=== PATIENT | female | born 1965 | race Caucasian/White ===

== ENCOUNTER → 2016-07-07 | Outpatient (CLI) | payer BC ==
--- NOTE | 2016-07-09 13:57 | Diagnostic Imaging Report ---
Bilateral screening mammogram. The current study was also evaluated with a Computer Aided Detection (CAD) system. INDICATION: Screening. No current complaints stated on the questionnaire. COMPARISON: 06/02/2015. FINDINGS: The breasts are composed of heterogeneously dense parenchyma which may decrease mammographic sensitivity. There is no mass, architectural distortion, or suspicious microcalcification. Allowing for technique and positional differences, no suspicious change is seen. IMPRESSION: Dense breasts with no definite change. ACR BI-RADS Category 2: Benign findings. Result letter will be mailed to the patient. Note: At least 10% of breast cancer is not imaged by mammography. Dictated by: Dictated on workstation # [id number]
== END ==
LOC: RAD 07:26
PROVIDERS: ATTEND Obstetrics & Gynecology
DX: Z12.31 Encounter for screening mammogram for malignant neoplasm of breast (principal)

== ENCOUNTER → 2017-07-11 | Outpatient (CLI) | payer BC ==
--- NOTE | 2017-07-11 09:33 | Diagnostic Imaging Report ---
INDICATION: Routine screening. Comparison is made with prior mammogram from 07/07/2016 and 06/02/2015. The current study was also evaluated with a Computer Aided Detection (CAD) system. Bilateral CC and MLO 3D mammography was performed. Both breasts are heterogeneously dense, limiting the sensitivity of mammography. No dominant mass or malignant appearing microcalcifications are seen. The axillae are unremarkable. IMPRESSION: BI-RADS category 1. No mammographic features suspicious for malignancy are identified. ACR BI-RADS Category 1: Negative. Result letter will be mailed to the patient. Note: At least 10% of breast cancer is not imaged by mammography. Dictated by: Dictated on workstation # [id number]
== END ==
LOC: RAD 07:37
PROVIDERS: ATTEND Obstetrics & Gynecology
DX: Z12.31 Encounter for screening mammogram for malignant neoplasm of breast (principal)
CPT/HCPCS: 77067

== ENCOUNTER → 2017-08-01 | Outpatient (CLI) | payer BC ==
--- NOTE | 2017-08-01 14:20 | Diagnostic Imaging Report ---
CLINICAL INDICATION: Patient with cough, low-grade fever, and laryngitis for the past 3 weeks. EXAM: Chest x-ray, PA and lateral views. COMPARISON: None. FINDINGS: LUNGS/PLEURA: There is interval development of a mild right lung base infiltrate. The remaining lungs are clear. There is no pneumothorax. There is no pleural effusion. MEDIASTINUM: Unremarkable. PULMONARY VASCULATURE: Unremarkable. HEART: Unremarkable. BONES/EXTRATHORACIC SOFT TISSUE: There are small degenerative spurs involving the thoracic spine. IMPRESSION: Interval development of mild right lung base infiltrate/pneumonia. The results of this report were discussed with Michel, the nurse practitioner working with Dr. Baldwin, via the telephone on 08/01/2017 at 1400 hours. Dictated by: Dictated on workstation # [id number]
== END ==
LOC: RAD 13:44
PROVIDERS: ATTEND Internal Medicine
DX: R91.8 Other nonspecific abnormal finding of lung field (principal); R05 Cough; R50.9 Fever, unspecified
CPT/HCPCS: 71046

== ENCOUNTER 2017-12-26 12:00 | Outpatient (CLI) | payer BC ==
[~2017-12-26] VITALS: Ht 170.2 cm; Wt 63.5 kg
== END 2017-12-26 12:39 ==
LOC: PREOP 12:00
PROVIDERS: ATTEND Internal Medicine
DX: Z01.818 Encounter for other preprocedural examination (principal); Z12.11 Encounter for screening for malignant neoplasm of colon

== ENCOUNTER 2017-12-30 07:07 | Day surgery (SDC) | payer BC ==
--- NOTE | 2017-12-13 15:02 | HISTORY AND PHYSICAL ---
DATE OF SERVICE: COLONOSCOPY SUMMARY H AND P HISTORY OF PRESENT ILLNESS: The patient is a 52-year-old white female referred by Dr. Escamilla for her first screening colonoscopy. She is deemed to be of average risk as she is not aware of any family history for colon cancer. She reports no health problems. Denies bright red blood per rectum, melena, bowel habit change, constipation, diarrhea or abdominal pain. PAST MEDICAL HISTORY: She has had some issues with PVCs in the past, but no other significant ventricular or atrial arrhythmias. She states she takes an aspirin 81 mg per day for this reason. She has some occasional allergies. So, she takes Claritin for and takes melatonin at bedtime for insomnia. PAST SURGICAL HISTORY: Noncontributory. FAMILY HISTORY: Father has history of prostate cancer. Mother in her 60s secondary to complications from diabetes. She has had one paternal aunt with pancreatic cancer and another with thyroid cancer, but again no issues with colon cancer or inflammatory bowel disease reported. SOCIAL HISTORY: She is , employed with no past smoking history and occasional social alcohol intake. PHYSICAL EXAMINATION: GENERAL: Reveals normal weight. Well appearing white female in no acute distress. VITAL SIGNS: Blood pressure 94/64, heart rate 70 and regular. HEENT: Examination is unremarkable. She has a Mallampati class 1 oropharyngeal configuration. No pharyngeal erythema is noted. CHEST: Clear to auscultation. CARDIOVASCULAR: Reveals a regular rate and rhythm without murmur, S3 or S4. ABDOMEN: Soft, supple without mass, organomegaly or tenderness. Bowel sounds are positive. EXTREMITIES: Reveal no cyanosis, clubbing or edema. ASSESSMENT: The patient was set up for screening colonoscopy deemed to be of average risk on the 30 of December. Prep instructions with the [facility]-prep kit were given and questions were answered. Job ID: [id number] DocumentID: [id number] Dictated Date: 12/10/2017 14:25:44 Pilot Fuel Engineer Date: 12/10/2017 15:05:16 Dictated By: SHAYAN PHAM MD
[~2017-12-30] VITALS: Ht 170.2 cm; Wt 63.5 kg
[2017-12-30] MEDS ORDERED: D5 LR IV SOLUTION 1,000 ML IV ONE (07:16)
[2017-12-30] MEDS ORDERED: D5 LR IV SOLUTION 1,000 ML IV STA (07:21)
[2017-12-30] MEDS ORDERED: MIDAZOLAM 2 MG/2 ML (VERSED) VIAL IVP PRN (07:30)
[2017-12-30] MEDS ORDERED: LIDOCAINE JELLY 2% (XYLOCAINE) 5 ML TUBE MM PRN (07:30)
[2017-12-30] MEDS ORDERED: fentaNYL INJECTION 100 MCG/2 ML AMP IVP PRN (07:30)
[2017-12-30 07:41] VITALS: BP 110/77
[2017-12-30] MEDS ORDERED: fentaNYL INJECTION 100 MCG/2 ML AMP ONE (08:04)
[2017-12-30] MEDS ORDERED: MIDAZOLAM 2 MG/2 ML (VERSED) VIAL ONE ×2 (08:04)
[2017-12-30] MEDS ORDERED: LIDOCAINE JELLY 2% (XYLOCAINE) 5 ML TUBE ONE (08:05)
--- NOTE | 2017-12-30 08:09 | Pre-Op Note & Conscious Sedat ---
Pre-Operative Progress Note H&P Reviewed The H&P was reviewed, patient examined and no changes noted. Date H&P Reviewed: Dec 30, 2017 Time H&P Reviewed: 07:50 Conscious Sedation Pre-Proced ASA Class: 2 Airway Mallampati Classification: ([place] appropriate class) I. II. III, IV Lungs Heart ASA score ASA 1: a normal healthy patient ASA 2: a patient with a mild systemic disease (mid diabetes, controlled hypertension, obesity ASA 3: a patient with a severe systemic disease that limits activity (angina , COPD, prior Myocardial infarction) ASA 4: a patient with an incapacitating disease that is a constant threat to life (CHF, renal failure) ASA 5: a moribund patient not expected to survive 24 hrs. (ruptured aneurysm) ASA 6: a declared brain patient whose organs are being harvested. For emergent operations, add the letter E after the classification Grade 1 Sedation Plan: Analgesia, Amnesia, Plan communicated to team members, Discussed options with patient/fam, Discussed risks with patient/fam Note The patient is an appropriate candidate to undergo the planned procedure, sedation, and anesthesia. The patient immediately re-assessed prior to indication. SHAYAN PHAM MD Dec 30, 2017 08:09
[2017-12-30 08:45] VITALS: BP 117/74
[2017-12-30 09:15] VITALS: BP 110/74
[2017-12-30 09:30] VITALS: BP 110/74
--- NOTE | 2017-12-30 15:26 | OPERATIVE REPORT ---
DATE OF SERVICE: 12/30/2017 COLONOSCOPY SUMMARY INDICATION FOR THE PROCEDURE: Screening colonoscopy. DESCRIPTION OF PROCEDURE: The patient was placed in the left lateral decubitus position. Prior to the colonoscopy, digital rectal evaluation was performed. Anal sphincter tone was normal. Perianal reflexes intact. No abnormalities were noted on the digital inspection of anal canal or distal rectal vault. The colonoscope was then inserted into the rectum and under direct visualization advanced to cecum. Cecum was identified by identification of the ileocecal valve and cecal strap as well as appendiceal orifice. Photographic documentation was obtained. Careful inspection was made as the colonoscope was withdrawn. The patient tolerated the procedure well. FINDINGS: There was no evidence for internal or external hemorrhoids. The rectum, sigmoid colon, descending colon, splenic flexure and transverse colon were unremarkable. A diminutive 3 mm sessile polyp was noted at the hepatic flexure. It was photographed and biopsied and ablated with no subsequent blood loss. The ascending colon and cecum were unremarkable. ASSESSMENT: One diminutive polyp was removed via hot forceps from the hepatic flexure. This was an otherwise normal colonoscopy to the cecum. As long as there are no surprises on histopathology report, we would advocate consideration for repeat screening colonoscopy in 10 years. I thank you for the referral of this pleasant lady. Job ID: [id number] DocumentID: [id number] Dictated Date: 12/30/2017 10:45:08 Digital Marketing Apprentice Date: 12/30/2017 15:25:45 Dictated By: SHAYAN PHAM MD
== END 2017-12-30 09:30 | disposition home or self-care (01) ==
LOC: ENDO 07:07
PROVIDERS: ATTEND Internal Medicine
DX: Z12.11 Encounter for screening for malignant neoplasm of colon (principal); K63.5 Polyp of colon; I49.3 Ventricular premature depolarization; Z79.82 Long term (current) use of aspirin
CPT/HCPCS: 84703

== ENCOUNTER → 2018-08-15 | Outpatient (CLI) | payer BC ==
--- NOTE | 2018-08-15 09:01 | Diagnostic Imaging Report ---
INDICATION: Screening. COMPARISON: 07/11/2017 back through 05/04/2012. TECHNIQUE: 3D tomosynthesis was performed and reviewed. FINDINGS: The fibroglandular tissue is heterogeneously dense bilaterally. There is no dominant mass, spiculated lesion, or suspicious calcification identified. The skin, nipples, and axillae are unremarkable. IMPRESSION: Negative. ACR BI-RADS Category 1: Negative. Result letter will be mailed to the patient. Note: At least 10% of breast cancer is not imaged by mammography. Dictated by: Dictated on workstation # [id number]
== END ==
LOC: RAD 07:29
PROVIDERS: ATTEND Obstetrics & Gynecology
DX: Z12.31 Encounter for screening mammogram for malignant neoplasm of breast (principal)
CPT/HCPCS: 77067

== ENCOUNTER → 2019-04-26 | Outpatient (CLI) | payer BC ==
--- NOTE | 2019-04-26 16:34 | Diagnostic Imaging Report ---
PROCEDURE: US Non-ob pelvis comp/trans. TECHNIQUE: Multiple realtime grayscale images were obtained of the pelvis in various projections endovaginally. Transabdominal imaging was also performed. INDICATION: Acute pelvic pain. COMPARISON: None available. FINDINGS: The uterus measures 7.9 x 4.6 x 3.1 cm. No focal uterine mass. The endometrium measures 0.7 cm, which is within normal limits. The bilateral ovaries are unremarkable, though the left ovary was only able to be visualized transabdominally. No significant free fluid. IMPRESSION: Unremarkable examination without acute abnormality. Dictated by: Dictated on workstation # [id number]
== END ==
LOC: RAD 15:12
PROVIDERS: ATTEND Obstetrics & Gynecology
DX: Z12.31 Encounter for screening mammogram for malignant neoplasm of breast (principal); R10.2 Pelvic and perineal pain
CPT/HCPCS: 76830; 76856

== ENCOUNTER → 2019-05-15 | Outpatient (CLI) | payer BC ==
[2019-05-15 08:21] LABS: ABSOLUTE RETIC # 29 10e9/L (24-90); BASOPHILS % (AUTO) 1 % (0-10); EOSINOPHILS # (AUTO) 0.1 10^3/uL (0.0-0.3); EOSINOPHILS % (AUTO) 5 % (0-10); HEMATOCRIT 42 % (35-52); HEMOGLOBIN 13.9 G/DL (11.5-16.0); LYMPHOCYTES # (AUTO) 1.5 X 10^3 (1.0-4.0); LYMPHOCYTES % (AUTO) 49 % (12-44); MEAN CORPUSCULAR HEMOGLOBIN 28 PG (25-34); MEAN CORPUSCULAR HGB CONC 33 G/DL (32-36); MEAN CORPUSCULAR VOLUME 85 FL (80-99); MEAN PLATELET VOLUME 10.8 FL (7.4-10.4); MONOCYTES # (AUTO) 0.3 X 10^3 (0.0-1.0); MONOCYTES % (AUTO) 10 % (0-12); NEUTROPHILS # (AUTO) 1.1 X 10^3 (1.8-7.8); NEUTROPHILS % (AUTO) 36 % (42-75); PLATELET COUNT 196 10^3/uL (130-400); RED CELL DISTRIBUTION WIDTH 13.5 % (10.0-14.5); RETICULOCYTE % 0.58 % (0.50-2.40)
[2019-05-15 09:18] LABS: BAND NEUTROPHILS 1 %; BASOPHILS % (MANUAL) 1 %; EOSINOPHILS % (MANUAL) 5 %; LYMPHOCYTES % (MANUAL) 51 %; MONOCYTES % (MANUAL) 12 %; NEUTROPHILS % (MANUAL) 30 %; RBC MORPH NORMAL
== END ==
LOC: LAB 08:04
PROVIDERS: ATTEND Internal Medicine
DX: D72.89 Other specified disorders of white blood cells (principal)
CPT/HCPCS: 36415; 85007; 85027; 85045

== ENCOUNTER → 2019-08-16 | Outpatient (CLI) | payer BC ==
--- NOTE | 2019-08-16 09:10 | Diagnostic Imaging Report ---
INDICATION: Routine screening. Comparison is made with prior mammogram 08/15/2018 and 07/11/2017. 2-D and 3-D bilateral screening mammography was performed with CAD. Both breasts are heterogeneously dense, limiting the sensitivity of mammography. No mass or malignant appearing microcalcifications are seen. Axillae are unremarkable. IMPRESSION: BI-RADS Category 1 No mammographic features suspicious for malignancy are identified. ACR BI-RADS Category 1: Negative. Result letter will be mailed to the patient. Note: At least 10% of breast cancer is not imaged by mammography. Dictated by: Dictated on workstation # [id number]
== END ==
LOC: RAD 07:31
PROVIDERS: ATTEND Obstetrics & Gynecology
DX: Z12.31 Encounter for screening mammogram for malignant neoplasm of breast (principal)
CPT/HCPCS: 77067

== ENCOUNTER → 2020-08-19 | Outpatient (CLI) | payer BC ==
--- NOTE | 2020-08-19 12:37 | Diagnostic Imaging Report ---
INDICATION: Routine screening. COMPARISON: 08/16/2019 and 08/15/2018. TECHNIQUE: 2D and 3D bilateral screening mammography was performed with CAD. FINDINGS: Both breasts show marked parenchymal heterogeneity and increased density, limiting the sensitivity of mammography. The parenchymal pattern is stable. No mass or malignant appearing microcalcifications are seen. The axillae are unremarkable. IMPRESSION: No mammographic features suspicious for malignancy are identified. ACR BI-RADS Category 1: Negative. Result letter will be mailed to the patient. Note: At least 10% of breast cancer is not imaged by mammography. Dictated by: Dictated on workstation # [id number]
== END ==
LOC: RAD 07:30
PROVIDERS: ATTEND Obstetrics & Gynecology
DX: Z12.31 Encounter for screening mammogram for malignant neoplasm of breast (principal)
CPT/HCPCS: 77063; 77067

== ENCOUNTER → 2021-01-21 | Outpatient (CLI) | payer BC ==
[2021-01-21 10:56] VITALS: BP 126/84
== END ==
LOC: CARD 10:00
PROVIDERS: ATTEND Internal Medicine Cardiovascular Disease
DX: I10 Essential (primary) hypertension (principal); I25.10 Atherosclerotic heart disease of native coronary artery without angina pectoris
CPT/HCPCS: 93306; 93351

== ENCOUNTER → 2021-09-08 | Outpatient (CLI) | payer BC ==
--- NOTE | 2021-09-08 12:36 | Diagnostic Imaging Report ---
INDICATION: Routine screening. COMPARISON: Mammograms from 08/19/2020 and 08/16/2019. TECHNIQUE: 2D and 3D bilateral screening mammography was performed with CAD. FINDINGS: Both breasts are heterogeneously dense, limiting the sensitivity of mammography. No mass or malignant-appearing microcalcifications are seen. The axillae are unremarkable. IMPRESSION: No mammographic features suspicious for malignancy are identified. ACR BI-RADS Category 1: Negative. Result letter will be mailed to the patient. Note: At least 10% of breast cancer is not imaged by mammography. Dictated by: Dictated on workstation # [id number]
== END ==
LOC: RAD 07:30
PROVIDERS: ATTEND Obstetrics & Gynecology
DX: Z12.31 Encounter for screening mammogram for malignant neoplasm of breast (principal)
CPT/HCPCS: 77063; 77067

== ENCOUNTER → 2021-09-17 | Outpatient (CLI) | payer BC ==
--- NOTE | 2021-09-17 10:31 | Diagnostic Imaging Report ---
PROCEDURE: US Gallbladder. TECHNIQUE: Multiple real-time grayscale images were obtained over the right upper quadrant in various projections. INDICATION: Right mid abdominal pain. Liver is normal in size at 15 cm. Portal vein is patent and shows normal direction of flow. No liver mass is detected. Gallbladder is without stones or sludge. There is no wall thickening or biliary duct dilatation. The pancreas is unremarkable. Aorta is nonaneurysmal. IVC is patent. Right kidney is without calculi. There is some slight prominence of the right renal pelvis but no gerald hydronephrosis. There is no ascites. IMPRESSION: 1. Essentially unremarkable gallbladder ultrasound. There is no evidence of cholelithiasis or acute cholecystitis. Right renal pelvis is slightly prominent but no definite calculi are seen. Dictated by: Dictated on workstation # [id number]
--- NOTE | 2021-09-17 10:34 | Diagnostic Imaging Report ---
INDICATION: Right lower quadrant pain. Right lower quadrant was evaluated. Tubular structure in the right lower quadrant is seen may represent the appendix. This appears to be compressible and normal in size. No periappendiceal fluid is seen. Right adnexa was evaluated as well. Right ovary measures 2.1 x 1.2 x 1.8 cm. There is blood flow present. No mass or free fluid is seen. IMPRESSION: Unremarkable right lower quadrant ultrasound. Dictated by: Dictated on workstation # [id number]
== END ==
LOC: RAD 09:00
PROVIDERS: ATTEND Nurse Practitioner Family
DX: R10.31 Right lower quadrant pain (principal)
CPT/HCPCS: 76705

== ENCOUNTER 2021-09-19 21:42 | Emergency (ER) | payer BC ==
[~2021-09-19] VITALS: Ht 170.2 cm; Wt 60.3 kg
[2021-09-19 22:15] VITALS: BP 145/86
[2021-09-19 22:29] LABS: BILIRUBIN,URINE NEGATIVE (NEGATIVE); CLARITY,URINE CLEAR; COLOR,URINE YELLOW; GLUCOSE, URINE (UA) NEGATIVE (NEGATIVE); KETONES,URINE NEGATIVE (NEGATIVE); LEUKOCYTE ESTERASE ,URINE NEGATIVE (NEGATIVE); NITRITE,URINE NEGATIVE (NEGATIVE); PH,URINE 5.5 (5-9); PROTEIN,URINE NEGATIVE (NEGATIVE)
[2021-09-19 22:36] LABS: BACTERIA,URINE NEGATIVE /HPF; WBC,URINE RARE /HPF
[2021-09-19 23:10] LABS: BASOPHILS % (AUTO) 1 % (0-10); EOSINOPHILS # (AUTO) 0.1 10^3/uL (0.0-0.3); EOSINOPHILS % (AUTO) 2 % (0-10); HEMATOCRIT 39 % (35-52); HEMOGLOBIN 13.4 g/dL (11.5-16.0); LYMPHOCYTES % (AUTO) 22 % (12-44); MEAN CORPUSCULAR HEMOGLOBIN 30 pg (25-34); MEAN CORPUSCULAR HGB CONC 35 g/dL (32-36); MEAN CORPUSCULAR VOLUME 88 fL (80-99); MEAN PLATELET VOLUME 11.1 fL (9.0-12.2); MONOCYTES # (AUTO) 0.4 10^3/uL (0.0-1.0); MONOCYTES % (AUTO) 9 % (0-12); NEUTROPHILS % (AUTO) 67 % (42-75); PLATELET COUNT 181 10^3/uL (130-400); WHITE BLOOD COUNT 4.4 10^3/uL (4.3-11.0)
--- NOTE | 2021-09-19 23:14 | ED GI ---
General Chief Complaint: Abdominal/GI Problems Stated Complaint: ABD PAIN Nursing Triage Note: Pt arrives via POV from home for c/o ABD pain; onset one week. Pt reports RLQ ABD one week ago, had an ultrasound done but is unsure of the result. Pt reports pain is now midline lower to LLQ. Pt reports mild nausea but denies emesis. Pt denies increased pain with palpation. Pt denies changes in bladder/bowel. History of Present Illness Date Seen by Provider: Sep 19, 2021 Time Seen by Provider: 22:30 Initial Comments 55 year old female presents for approximate 1 week onset of lower abdominal pain. At initial presentation it was on the right lower side. She was seen by the BULLDOGGER at Dr. Harman's office. UA and Ultrasounds were completed. Patient reports she did not get the results of her ultrasounds. These were completed on 09/17/2021 at this facility. Today she has periumbilical burning sensation in her abdomen and some pain in the left lower quadrant. She reports her pain to be at a 2 presently and she is not having any nausea. She had a normal bowel movement today. She has not vomited or had diarrhea. She has had no previous abdominal surgeries and she is menopausal. She ate dinner at approximately 1830. When the pain becomes more severe it will cause her to pause with activities but it usually only last a few minutes. She had a colonoscopy at age 51 and was told to have a repeat at age 56 due to 1 polyp. Symptoms started after she was on Terbinafine for athlete's foot Timing/Duration: 1 Week Severity/Quality: Burning, Dull Location: LLQ, Periumbilical Radiation: No Radiation Associated Symptoms: Denies Symptoms Allergies and Home Medications Allergies Coded Allergies: No Known Drug Allergies (Unverified , 12/26/17) Patient Home Medication List Home Medication List Reviewed: Yes No Active Prescriptions or Reported Meds Review of Systems Review of Systems Constitutional: no symptoms reported, see HPI Gastrointestinal: See HPI, Abdominal Pain; Denies Constipated, Denies Diarrhea, Denies Difficulty Swallowing, Denies Nausea, Denies Poor Appetite, Denies Poor Fluid Intake, Denies Rectal Bleeding, Denies Vomiting All Other Systems Reviewed Negative Unless Noted: Yes Past Bkeahib-Ucnlog-Oatckh Hx Patient Social History Tobacco Use?: No Use of E-Cig and/or Vaping dev: No Substance use?: No Alcohol Use?: No Pt feels they are or have been: No Immunizations Up To Date Tetanus Booster (TDap): Unknown Influenza Vaccine Up-to-Date: Yes; Up-to-Date COVID19 Vaccine Associate Account Executive: Gail Seasonal Allergies Seasonal Allergies: Yes Past Medical History Currently Using CPAP: No Currently Using BIPAP: No Reproductive Disorders: No Female Reproductive Disorders: Denies Sexually Transmitted Disease: No HIV/AIDS: No Family Medical History Reviewed Nursing Family Hx Physical Exam Vital Signs Vital Signs - First Documented 09/19/21 22:15 Temp 36.8 Pulse 76 Resp 18 B/P (MAP) 145/86 (105) Pulse Ox 96 O2 Delivery Room Air Capillary Refill : Less Than 3 Seconds Height/Weight/BMI Height: 5'7.00" Weight: 140lbs. 0.0oz. 63.380379vu; 20.00 BMI Method: General Appearance: WD/WN, no apparent distress Respiratory: chest non-tender, lungs clear, normal breath sounds Cardiovascular: normal peripheral pulses, regular rate, rhythm, no edema Gastrointestinal: normal bowel sounds, soft; No guarding, No rebound; tenderness (trace LLQ); No hernia, No mass; other (Neg Rodrigues sign. ) Extremities: normal range of motion, non-tender, normal inspection Back: normal inspection, no CVA tenderness, no vertebral tenderness Neurologic/Psychiatric: no motor/sensory deficits, alert, normal mood/affect, oriented x 3 Skin: normal color, warm/dry Progress/Results/Core Measures Results/Orders Lab Results Laboratory Tests Test 09/19/21 22:20 09/19/21 23:00 Range/Units Urine Color YELLOW Urine Clarity CLEAR Urine pH 5.5 5-9 Urine Specific [place] 1.015 L 1.016-1.022 Urine Protein NEGATIVE NEGATIVE Urine Glucose (UA) NEGATIVE NEGATIVE Urine Ketones NEGATIVE NEGATIVE Urine Nitrite NEGATIVE NEGATIVE Urine Bilirubin NEGATIVE NEGATIVE Urine Urobilinogen 0.2 < = 1.0 MG/DL Urine Leukocyte Esterase NEGATIVE NEGATIVE Urine RBC (Auto) NEGATIVE NEGATIVE Urine RBC NONE /HPF Urine WBC RARE /HPF Urine Squamous Epithelial Cells NONE /HPF Urine Renal Epithelial Cells NONE /HPF Urine Crystals NONE /LPF Urine Bacteria NEGATIVE /HPF Urine Casts NONE /LPF Urine Mucus NEGATIVE /LPF Urine Culture Indicated NO White Blood Count 4.4 4.3-11.0 10^3/uL Red Blood Count 4.42 3.80-5.11 10^6/uL Hemoglobin 13.4 11.5-16.0 g/dL Hematocrit 39 35-52 % Mean Corpuscular Volume 88 80-99 fL Mean Corpuscular Hemoglobin 30 25-34 pg Mean Corpuscular Hemoglobin Concent 35 32-36 g/dL Red Cell Distribution Width 11.9 10.0-14.5 % Platelet Count 181 130-400 10^3/uL Mean Platelet Volume 11.1 9.0-12.2 fL Immature Granulocyte % (Auto) 0 % Neutrophils (%) (Auto) 67 42-75 % Lymphocytes (%) (Auto) 22 12-44 % Monocytes (%) (Auto) 9 0-12 % Eosinophils (%) (Auto) 2 0-10 % Basophils (%) (Auto) 1 0-10 % Neutrophils # (Auto) 3.0 1.8-7.8 10^3/uL Lymphocytes # (Auto) 1.0 1.0-4.0 10^3/uL Monocytes # (Auto) 0.4 0.0-1.0 10^3/uL Eosinophils # (Auto) 0.1 0.0-0.3 10^3/uL Basophils # (Auto) 0.0 0.0-0.1 10^3/uL Immature Granulocyte # (Auto) 0.0 0.0-0.1 10^3/uL Sodium Level 139 135-145 MMOL/L Potassium Level 3.7 3.6-5.0 MMOL/L Chloride Level 104 98-107 MMOL/L Carbon Dioxide Level 19 L 21-32 MMOL/L Anion Gap 16 H 5-14 MMOL/L Blood Urea Nitrogen 19 H 7-18 MG/DL Creatinine 0.83 0.60-1.30 MG/DL Estimat Glomerular Filtration Rate 84 BUN/Creatinine Ratio 23 Glucose Level 117 H 70-105 MG/DL Calcium Level 9.6 8.5-10.1 MG/DL Corrected Calcium 9.4 8.5-10.1 MG/DL Total Bilirubin 0.4 0.1-1.0 MG/DL Aspartate Amino Transf (AST/SGOT) 20 5-34 U/L Alanine Aminotransferase (ALT/SGPT) 16 0-55 U/L Alkaline Phosphatase 69 40-136 U/L C-Reactive Protein High Sensitivity 0.04 0.00-0.50 MG/DL Total Protein 7.0 6.4-8.2 GM/DL Albumin 4.3 3.2-4.5 GM/DL Amylase Level 64 25-125 U/L Lipase 27 8-78 U/L My Orders Orders - JOSEPH SCHMITZ Ua Culture If Indicated (09/19/21 22:13) Amylase (09/19/21 22:54) Cbc With Automated Diff (09/19/21 22:54) Comprehensive Metabolic Panel (09/19/21 22:54) Hs C Reactive Protein (09/19/21 22:54) Lipase (09/19/21 22:54) Hyoscyamine Sl Tablet (Levsin Sl Tablet) (09/19/21 23:30) Rx-Hyoscyamine Tab (Rx-Levsin Sl) (09/19/21 23:35) Medications Given in ED Current Medications Medications Dose Ordered Sig/Arash Route Start Time Stop Time Status Last Admin Dose Admin Hyoscyamine Sulfate 0.125 mg ONCE ONCE SL 09/19/21 23:30 09/19/21 23:31 DC 09/19/21 23:27 0.125 MG Vital Signs/I&O 09/19/21 22:15 Temp 36.8 Pulse 76 Resp 18 B/P (MAP) 145/86 (105) Pulse Ox 96 O2 Delivery Room Air Blood Pressure Mean: 105 Progress Progress Note : Time: 22:30 Progress Note Patient seen and evaluated, will obtain labs and reevaluate. 2305 normal WBC, patient complaining of increased periumbilical and left lower quadrant pain. Will try Levsin sublingual. 2330 the patient reports improvement in her symptoms after the medicine. She will discontinue the Lamisil and follow-up with Dr. Harman to consider other options. Discharge instructions and return precautions reviewed with her. Departure Impression Primary Impression: Abdominal pain Qualified Codes: R10.32 - Left lower quadrant pain Disposition: 01 HOME, SELF-CARE Condition: Improved Departure-Patient Inst. Decision time for Depature: 23:30 Referrals: BRAXTON HARMAN MD (PCP/Family) Primary Care Physician Patient Instructions: Severe Abdominal Pain, Adult (DC) Add. Discharge Instructions: Use the Levsin as needed every 6-8 hours for abdominal spasms. Discontinue the medication for the athlete's foot. Monitor if symptoms improve. Schedule a follow-up appointment with Dr. Harman's office for next week. Increase water intake. Return to the emergency department for new, urgent healthcare needs. All discharge instructions reviewed with patient and/or family. Voiced understanding. Scripts No Active Prescriptions or Reported Meds Copy Copies To 1: BRAXTON HARMAN MD, AMY ARNP Sep 19, 2021 23:14
[2021-09-19 23:18] LABS: ALBUMIN 4.3 GM/DL (3.2-4.5)
[2021-09-19 23:19] LABS: POTASSIUM 3.7 MMOL/L (3.6-5.0)
[2021-09-19 23:20] LABS: CALCIUM 9.6 MG/DL (8.5-10.1)
[2021-09-19 23:23] LABS: BILIRUBIN,TOTAL 0.4 MG/DL (0.1-1.0)
[2021-09-19 23:25] LABS: CREATININE SERUM 0.83 MG/DL (0.60-1.30)
[2021-09-19] MEDS ORDERED: HYOSCYAMINE 0.125 MG (LEVSIN) TAB SL ONE (23:30)
[2021-09-19] MEDS ORDERED: RX-HYOSCYAMINE 0.125 MG SL (LEVSIN) PPK#6 SL STA (23:35)
== END 2021-09-19 23:50 | disposition home or self-care (01) ==
LOC: EDUNIT# 21:42 → ER 21:44
DX: R10.32 Left lower quadrant pain (principal)
CPT/HCPCS: 36415; 80053; 81000; 82150; 83690; 85025; 86141; 99283

== ENCOUNTER → 2022-09-24 | Outpatient (CLI) | payer BC ==
--- NOTE | 2022-09-24 10:05 | Diagnostic Imaging Report ---
Indication: Routine screening. Comparison is made with prior mammograms from 09/08/2021 and 08/19/2020. 2-D and 3-D bilateral screening mammography was performed with CAD. Both breasts are heterogeneously dense, limiting the sensitivity of mammography. The parenchymal pattern is stable. No mass or malignant-appearing microcalcifications are seen. Axillae are unremarkable. IMPRESSION: BI-RADS Category 1 No mammographic features suspicious for malignancy are identified. ACR BI-RADS Category 1: Negative. Result letter will be mailed to the patient. Note: At least 10% of breast cancer is not imaged by mammography. Dictated by: Dictated on workstation # [id number]
== END ==
LOC: RAD 09:30
PROVIDERS: ATTEND Obstetrics & Gynecology
DX: Z12.31 Encounter for screening mammogram for malignant neoplasm of breast (principal)
CPT/HCPCS: 77063; 77067